=== PATIENT | male | born 1995 | race Caucasian/White ===

== ENCOUNTER → 2019-12-18 | Outpatient (CLI) | payer BC ==
--- NOTE | 2019-12-18 15:06 | NM ---
EXAMINATION TYPE: NM bone scan whole body, NM bone SPECT DATE OF EXAM: 12/18/2019 COMPARISON: NONE HISTORY: Osteoarthritis, low back pain, lumbar region radiculopathy, lower back strain or muscle inju ry, bilateral leg pain, and bilateral lower extremity radiculopathy all per order. Low back pain afte r strain injury 2 months ago per patient. Technique: Delayed whole-body scanning was performed following the injection of 25.3 mCi Tc 99m MDP. Images acquired 3.5 hours post injection. 3 plane are SPECT imaging of the lumbar spine is performed . FINDINGS: There is no scintigraphic evidence of suspicious radiotracer uptake to suggest metastatic disease to the bone. Small focal area of uptake in the proximal to mid sternum of uncertain etiology, correlate clinically and with point tenderness at this level. Dedicated SPECT imaging of the lumbar spine shows no suspicious increased radiotracer uptake at any l umbar level. No obvious uptake at level of pars interarticularis in the lower lumbar spine to suggest pars defect. IMPRESSION: As above.
== END | disposition home or self-care (01) ==
LOC: RADNMMAIN 10:04
PROVIDERS: ATTEND Orthopaedic Surgery
DX: M54.16 Radiculopathy, lumbar region (principal); S39.012A Strain of muscle, fascia and tendon of lower back, initial encounter; M79.18 Myalgia, other site
CPT/HCPCS: 78306; 78803; A9503